=== PATIENT | female | born 1955 | race Caucasian/White ===

== ENCOUNTER → 2016-10-06 | Outpatient (CLI) | payer OTHER | LOC: COL.CARD 12:47 | DX: R27.0 Ataxia, unspecified (principal); R41.3 Other amnesia; G47.8 Other sleep disorders; G93.89 Other specified disorders of brain ==

== ENCOUNTER → 2017-02-17 | Outpatient (CLI) | payer OTHER | LOC: COL.RAD 09:17 | DX: R25.9 Unspecified abnormal involuntary movements (principal) | CPT/HCPCS: A9584 ==